=== PATIENT | female | born 1985 | race American Indian/Alaskan Native ===

== ENCOUNTER 2016-11-05 21:13 | Emergency (ER) | payer OTHER ==
[2016-11-05 21:14] VITALS: BMI 29.0
[2016-11-05 21:20] VITALS: BP 147/88; PULSE 81; TEMP 98; O2SAT 96
--- NOTE | 2016-11-05 21:38 | C.PDOC ---
History Of Present Illness 31 y/o female presents to the ED with complaints of generalized abdominal pain for 3 days with associated bloating, belching and urinary frequency. Patient did not take any medications. Denies dysuria, fever, flank pain, nausea, vomiting, constipation, diarrhea, vaginal bleeding or discharge. Time Seen by Provider: 11/05/16 21:29 Chief Complaint (Nursing): Abdominal Pain History Per: Patient History/Exam Limitations: no limitations Onset/Duration Of Symptoms: Days (3) Severity: Mild Location Of Pain/Discomfort: Diffuse, Suprapubic Radiation Of Pain To:: None Quality Of Discomfort: Pressure, "Pain", Gas Associated Symptoms: denies: Fever, Nausea, Vomiting, Back Pain Exacerbating Factors: None Alleviating Factors: None Last Bowel Movement: Today Recent travel outside of the [place]: No Abnormal Vaginal Bleeding: No Last Menstral Period: 10/12/16 Past Medical History Reviewed: Historical Data, Nursing Documentation, Vital Signs Vital Signs: Last Vital Signs Temp 98 F 11/05/16 21:19 Pulse 81 11/05/16 21:19 Resp 18 11/05/16 21:19 BP 147/88 11/05/16 21:19 Pulse Ox 96 11/05/16 21:39 - Medical History PMH: No Chronic Diseases - [facility] Procedures APPLICATION OF SPLINT (05/16/14) D & C POST DELIVERY (04/10/05) INJECT ANTIBIOTIC (07/10/04) INJECT/INFUSE NEC (01/20/15) Family History: States: Unknown Family Hx - Social History Hx Tobacco Use: Yes Hx Alcohol Use: Yes Hx Substance Use: No - Immunization History Hx Tetanus Toxoid Vaccination: No Hx Influenza Vaccination: No Hx Pneumococcal Vaccination: No Review Of Systems Constitutional: Negative for: Fever, Weakness, Malaise ENT: Negative for: Ear Pain, Throat Pain Cardiovascular: Negative for: Chest Pain Respiratory: Negative for: Cough, Shortness of Breath Gastrointestinal: Positive for: Abdominal Pain. Negative for: Nausea, Vomiting , Diarrhea, Constipation, Rectal Pain Genitourinary: Positive for: Frequency. Negative for: Dysuria, Vaginal Discharge, Vaginal Bleeding, Pelvic Pain Skin: Negative for: Rash Neurological: Negative for: Headache, Dizziness Physical Exam - Physical Exam Appears: Well, Non-toxic, No Acute Distress Skin: Warm, Dry, No Rash Head: Atraumatic, Normacephalic Eye(s): bilateral: Normal Inspection Neck: Normal ROM, Supple Chest: Symmetrical Cardiovascular: Rhythm Regular, No Murmur Respiratory: Normal Breath Sounds, No Rales, No Rhonchi, No Wheezing Gastrointestinal/Abdominal: Bowel Sounds, Soft, Tenderness (minimal suprapubic) , No Mass, No Distention, No Guarding, No Rebound Back: No CVA Tenderness Extremity: Normal ROM Extremity: Bilateral: Atraumatic Neurological/Psych: Oriented x3, Normal Speech Gait: Steady ED Course And Treatment O2 Sat by Pulse Oximetry: 96 (on room air) Pulse Ox Interpretation: Normal Medical Decision Making Medical Decision Making: Impression: 31 y.o female with abdominal pain, bloating and gas Plan: Tylenol, UA, test Progress: UA was negative for test and infection. Patient reevaluated is seated comfortably talking on phone in no distress. Explain negative and UA results. She denies any vaginal discharge and does not want pelvic exam, stating she recently had checkup with worm sorter. Advise patient to take any gas relief medication as needed. Return to ER for any worsening symptoms including fever, vomiting or diarrhea. Disposition Counseled Patient/Family Regarding: Diagnosis, Need For Followup - Disposition Referrals: Justin Hayes MD [Staff Provider] - Disposition: HOME/ ROUTINE Disposition Time: 22:01 Condition: STABLE Additional Instructions: Please take any gas relief medication over the counter. Follow up with your primary doctor or hammer fitter for further evaluation Return to the emergency department at any time if symptoms persist or worsen. Instructions: Gas and Bloating (ED) - POA Present On Arrival: None - Clinical Impression Clinical Impression: Dyspepsia - PA / INBOUND SALES CONSULTANT / Resident Statement MD/DO has reviewed & agrees with the documentation as recorded. - Scribe Statement The provider has reviewed the documentation as recorded by the Rajwinder Dye All medical record entries made by the Rajwinder were at my direction and personally dictated by me. I have reviewed the chart and agree that the record accurately reflects my personal performance of the history, physical exam, medical decision making, and the department course for this patient. I have also personally directed, reviewed, and agree with the discharge instructions and disposition.
[2016-11-05 21:45] LABS: RBC URINE 12 /hpf (0-3); URINE BACTERIA RARE (<OCC); URINE BILIRUBIN NEGATIVE (NEGATIVE); URINE COLOR Yellow (YELLOW); URINE GLUCOSE (UA) NORMAL (Normal); URINE KETONE TRACE mg/dL (NEGATIVE); URINE LEUKOCYTE ESTERASE NEG Leu/uL (Negative); URINE PROTEIN NEGATIVE (NEGATIVE); WBC URINE 1 /hpf (0-5)
[2016-11-05 21:46] LABS: URINE BLOOD 2+ (NEGATIVE)
[2016-11-05 22:06] VITALS: RESP 20
== END 2016-11-05 22:06 | disposition home or self-care (01) ==
LOC: C.ER 21:13
DX: R10.13 Epigastric pain (principal)

== ENCOUNTER 2017-08-04 19:17 | Emergency (ER) | payer BC, OTHER ==
[2017-08-04 19:18] VITALS: BMI 29.0
[2017-08-04 22:54] LABS: BASO # 0.1 K/uL (0.0-0.2); BASO % 0.8 % (0.0-2.0); EOS # 0.1 K/uL (0.0-0.7); EOS % 1.3 % (0.0-4.0); HEMOGLOBIN 12.9 g/dL (11.0-16.0); LYMPH # 2.7 K/uL (1.0-4.3); LYMPH % 38.6 % (20.0-40.0); MEAN CELL VOLUME 91.9 fL (81.0-99.0); MEAN CORPUSCULAR HEMOGLOBIN 31.4 pg (27.0-31.0); MEAN CORPUSCULAR HGB CONC 34.2 g/dL (33.0-37.0); MONO # 0.6 K/uL (0.0-0.8); MONO % 8.3 % (0.0-10.0); NEUT # 3.5 K/uL (1.8-7.0); RBC 4.09 Mil/uL (3.80-5.20); RED CELL DISTRIBUTION WIDTH 12.7 % (11.5-14.5); WHITE BLOOD COUNT 6.9 K/uL (4.8-10.8)
[2017-08-04 22:58] LABS: SQUAMOUS EPITHIAL 5 /hpf (0-5); URINE BILIRUBIN NEGATIVE (NEGATIVE); URINE BLOOD NEGATIVE (NEGATIVE); URINE CALCIUM OXALATE CRYSTALS RARE /hpf (<OCC); URINE CLARITY Clear (Clear); URINE COLOR Yellow (YELLOW); URINE GLUCOSE (UA) NORMAL (Normal); URINE LEUKOCYTE ESTERASE NEG Leu/uL (Negative); URINE NITRATE NEGATIVE (NEGATIVE); URINE PROTEIN NEGATIVE (NEGATIVE); URINE UROBILINOGEN NORMAL mg/dL (0.2-1.0)
--- NOTE | 2017-08-04 23:10 | US ---
EXAM: US First Trimester, Transabdominal CLINICAL HISTORY: 31 years old, female; Pain; complicated by abdominal or pelvic pain; Lower; First trimester; Gestational age or lmp: 06-02-2017; ; Prior surgery; Surgery date: 6+ months; Surgery type: 1 TECHNIQUE: Real-time transabdominal obstetrical ultrasound of the maternal pelvis and a first trimester with image documentation. COMPARISON: No relevant prior studies available. FINDINGS: Gestation: Single live intrauterine gestation. heart rate of 164 beats per minute. [place]-rump length of 2.98 cm, correlating with gestational age of 9 weeks 6 days. Uterus/cervix: No subchorionic hemorrhage. No cervical dilatation or effacement. Ovaries: RIGHT ovary: Normal. LEFT ovary: Not visualized. No adnexal masses. Free fluid: No significant free fluid. IMPRESSION: 1. Single live intrauterine gestation.
--- NOTE | 2017-08-04 23:14 | C.PDOC ---
History Of Present Illness 31 year old female who is G 6 P 1 Miscarriage 2 and 2 presents to the ED c/o cold symptoms along with nasal congestion productive cough with brown sputum for the past couple of days. Patient reports feeling febrile but did not take her temperature . Patient also reports 2 days ago she developed lower abdominal discomfort cramping feeling. Patient denies vaginal bleeding, discharge, urinary symptoms. Time Seen by Provider: 08/04/17 22:07 Chief Complaint (Nursing): Cough, Cold, Congestion History Per: Patient History/Exam Limitations: no limitations Onset/Duration Of Symptoms: Days Current Symptoms Are (Timing): Still Present Recent travel outside of the [place]: No Additional History Per: Patient Past Medical History Reviewed: Historical Data, Nursing Documentation, Vital Signs Vital Signs: Last Vital Signs Temp 98.5 F 08/04/17 20:56 Pulse 82 08/04/17 20:56 Resp 20 08/04/17 20:56 BP 144/92 H 08/04/17 20:56 Pulse Ox 99 08/04/17 23:18 - Medical History PMH: No Chronic Diseases Denies: Chronic Kidney Disease Surgical History: No Surg Hx - [facility] Procedures APPLICATION OF SPLINT (05/16/14) D & C POST DELIVERY (04/10/05) INJECT ANTIBIOTIC (07/10/04) INJECT/INFUSE NEC (01/20/15) Family History: States: Unknown Family Hx - Social History Hx Tobacco Use: Yes Hx Alcohol Use: No Hx Substance Use: No - Immunization History Hx Tetanus Toxoid Vaccination: No Hx Influenza Vaccination: Yes Hx Pneumococcal Vaccination: No Review Of Systems Constitutional: Negative for: Fever, Chills ENT: Positive for: Nose Congestion Cardiovascular: Negative for: Chest Pain, Palpitations Respiratory: Positive for: Cough Gastrointestinal: Negative for: Nausea, Vomiting, Abdominal Pain Skin: Negative for: Rash Neurological: Negative for: Weakness, Numbness Physical Exam - Physical Exam Appears: Non-toxic, No Acute Distress, Other (coughing) Skin: Normal Color, Warm, Dry Head: Atraumatic, Normacephalic Nose: No Discharge, No Deformity Oral Mucosa: Moist Throat: Normal, No Erythema, No Exudate Neck: Normal ROM, Supple Chest: Symmetrical Cardiovascular: Rhythm Regular, No Murmur Respiratory: Normal Breath Sounds, No Rales, No Rhonchi, No Wheezing Gastrointestinal/Abdominal: Soft, Tenderness (minimal superpubic ), No Guarding , No Rebound Extremity: Normal ROM, No Pedal Edema, No Calf Tenderness, No Deformity, No Swelling Neurological/Psych: Oriented x3, Normal Speech, Normal Cognition Gait: Steady ED Course And Treatment - Laboratory Results Result Diagrams: 08/04/17 22:47 08/04/17 22:47 Lab Interpretation: Normal O2 Sat by Pulse Oximetry: 99 (On RA) Pulse Ox Interpretation: Normal - CT Scan/US Pelvic ultrasound Other Rad Studies (CT/US): Read By Radiologist, Radiology Report Reviewed CT/US Interpretation: Creator : Gomez Chahal MD. Dictator : Air Intercept Controller : Grapple Crew Leader : Gomez Chahal MD. Approver2 : Report Date : 08/04/2017 23:10 :00. My Comment : . [facility] Division of Radiology. [address] [place] [address]. Tel. no. . . . Patient Name: KUSH RIVERA . Pt. Address: [address] [place] [address] Rec #: [id number]. [place] [address]: Dania Gonzalez MD. Pt Phone: Order Location: [facility] : 1985 Female Age: 31 Order #: [id number]. Reason for exam: Pain. . . . . . Ultrasound. . . 1ST TRIMESTER SINGLE Exam Date: 08/04/17. . This imaging exam was performed at [facility]. EXAM: US First Trimester, Transabdominal. . CLINICAL HISTORY: 31 years old, female; Pain; complicated by abdominal or pelvic. pain; Lower; First trimester; Gestational age or lmp: 11-1-2017; ;. Prior surgery; Surgery date: 6+ months; Surgery type: 1 . . TECHNIQUE: Real-time transabdominal obstetrical ultrasound of the maternal pelvis and a. first trimester with image documentation. . COMPARISON: No relevant prior studies available. . FINDINGS: Gestation: Single live intrauterine gestation. heart rate of 164. beats per minute. [place]-rump length of 2.98 cm, correlating with gestational. age of 9 weeks 6 days. Uterus/cervix: No subchorionic hemorrhage. No cervical dilatation or. effacement. Ovaries: RIGHT ovary: Normal. LEFT ovary: Not visualized. No adnexal. masses. Free fluid: No significant free fluid. . IMPRESSION: 1. Single live intrauterine gestation. . Dictated By: Gomez Chahal MD. Dictated Date/Time: 08/04/172309. Signed By: Gomez Chahal MD. Date Signed: 08/04/172309. Transcribed By: MEDREC. Transcribe Date/Time: 08/04/172309. ACYP02/LUIS M Medical Decision Making Medical Decision Making: Plan: * UA * Blood work * US * Blood work Disposition Counseled Patient/Family Regarding: Studies Performed, Diagnosis, Need For Followup, Rx Given - Disposition Referrals: [facility] [Outside] Disposition: HOME/ ROUTINE Disposition Time: 23:27 Condition: STABLE Prescriptions: Amoxicillin 875 mg PO BID #20 tablet Instructions: Upper Respiratory Infection (ED), (ED) Forms: [facility] ([place]) - Clinical Impression Clinical Impression: Upper respiratory infection, Early stage of - Scribe Statement The provider has reviewed the documentation as recorded by the Scribconner Cobb All medical record entries made by the Scribe were at my direction and personally dictated by me. I have reviewed the chart and agree that the record accurately reflects my personal performance of the history, physical exam, medical decision making, and the department course for this patient. I have also personally directed, reviewed, and agree with the discharge instructions and disposition.
[2017-08-04 23:15] LABS: ALB/GLOB RATIO 1.1 (1.0-2.1); ALBUMIN 3.8 g/dL (3.5-5.0); ALT/SGPT 29 U/L (9-52); AST/SGOT 24 U/L (14-36); BLOOD UREA NITROGEN 10 mg/dL (7-17); CALCIUM 8.6 mg/dl (8.6-10.4); GFR AFRICAN-AMERICAN > 60; GFR NON-AFRICAN AMERICAN > 60
[2017-08-05 00:01] VITALS: BP 138/88; PULSE 81; RESP 18; TEMP 98.2; O2SAT 100
== END 2017-08-04 23:30 | disposition home or self-care (01) ==
LOC: C.ER 19:17
DX: O26.891 Other specified pregnancy related conditions, first trimester (principal); J06.9 Acute upper respiratory infection, unspecified; Z3A.09 9 weeks gestation of pregnancy

== ENCOUNTER 2017-09-23 19:30 | Emergency (ER) | payer BC, OTHER ==
[2017-09-23 19:30] VITALS: BMI 29.0
[2017-09-23 21:10] LABS: SQUAMOUS EPITHIAL 3 /hpf (0-5); URINE BILIRUBIN NEGATIVE (NEGATIVE); URINE BLOOD NEGATIVE (NEGATIVE); URINE CLARITY Hazy (Clear); URINE COLOR Yellow (YELLOW); URINE GLUCOSE (UA) NORMAL (Normal); URINE LEUKOCYTE ESTERASE NEG Leu/uL (Negative); URINE NITRATE NEGATIVE (NEGATIVE); URINE PROTEIN NEGATIVE (NEGATIVE); URINE UROBILINOGEN NORMAL mg/dL (0.2-1.0)
[2017-09-23 21:20] LABS: BASO # 0.1 K/uL (0.0-0.2); BASO % 0.8 % (0.0-2.0); EOS # 0.1 K/uL (0.0-0.7); HEMOGLOBIN 12.6 g/dL (11.0-16.0); LYMPH # 2.3 K/uL (1.0-4.3); LYMPH % 27.3 % (20.0-40.0); MEAN CELL VOLUME 90.6 fL (81.0-99.0); MEAN CORPUSCULAR HGB CONC 34.3 g/dL (33.0-37.0); MEAN PLATELET VOLUME 8.7 fL (7.2-11.7); MONO # 0.5 K/uL (0.0-0.8); MONO % 6.4 % (0.0-10.0); NEUT # 5.4 K/uL (1.8-7.0); NEUT % 64.5 % (50.0-75.0); RBC 4.05 Mil/uL (3.80-5.20); WHITE BLOOD COUNT 8.3 K/uL (4.8-10.8)
[2017-09-23 21:37] LABS: ALB/GLOB RATIO 1.1 (1.0-2.1); ALBUMIN 3.7 g/dL (3.5-5.0); ALT/SGPT 31 U/L (9-52); AST/SGOT 20 U/L (14-36); BLOOD UREA NITROGEN 10 mg/dL (7-17); CALCIUM 9.4 mg/dl (8.6-10.4); GFR AFRICAN-AMERICAN > 60; GFR NON-AFRICAN AMERICAN > 60; LIPASE 55 U/L (23-300)
--- NOTE | 2017-09-23 22:35 | C.PDOC ---
Time Seen by Provider: 09/23/17 20:29 Chief Complaint (Nursing): Abdominal Pain History Per: Patient Onset/Duration Of Symptoms: Days (few) Current Symptoms Are (Timing): Still Present Severity: Moderate Location Of Pain/Discomfort: RLQ, Suprapubic Quality Of Discomfort: Unable To Describe, "Pain" Exacerbating Factors: None Alleviating Factors: None Additional History Per: Prior Records Abnormal Vaginal Bleeding: No Past Medical History Reviewed: Historical Data, Nursing Documentation, Vital Signs Vital Signs: Last Vital Signs Temp 98.2 F 09/23/17 19:46 Pulse 92 H 09/23/17 19:46 Resp 18 09/23/17 19:46 BP 122/85 09/23/17 19:46 Pulse Ox 97 09/23/17 22:56 - Medical History PMH: No Chronic Diseases Other PMH: Pt is 17 weeks - [facility] Procedures APPLICATION OF SPLINT (05/16/14) D & C POST DELIVERY (04/10/05) INJECT ANTIBIOTIC (07/10/04) INJECT/INFUSE NEC (01/20/15) Family History: States: Unknown Family Hx - Social History Hx Tobacco Use: Yes Hx Alcohol Use: No Hx Substance Use: No - Immunization History Hx Tetanus Toxoid Vaccination: No Hx Influenza Vaccination: Yes Hx Pneumococcal Vaccination: No Review Of Systems Except As Marked, All Systems Reviewed And Found Negative. Constitutional: Negative for: Fever Cardiovascular: Negative for: Chest Pain Respiratory: Negative for: Shortness of Breath Gastrointestinal: Positive for: Abdominal Pain. Negative for: Vomiting, Diarrhea Genitourinary: Negative for: Dysuria, Vaginal Discharge, Vaginal Bleeding Musculoskeletal: Negative for: Neck Pain Skin: Negative for: Rash Neurological: Negative for: Weakness, Numbness Physical Exam - Physical Exam Appears: Non-toxic, No Acute Distress Skin: Normal Color, Warm, Dry, No Rash Head: Atraumatic, Normacephalic Eye(s): bilateral: Normal Inspection, PERRL, EOMI Neck: Normal ROM, Supple Cardiovascular: Rhythm Regular Respiratory: Normal Breath Sounds, No Accessory Muscle Use Gastrointestinal/Abdominal: Soft, Tenderness (nonspecific), Other (Gravid) Back: No CVA Tenderness Extremity: Normal ROM Neurological/Psych: Oriented x3, Normal Motor, Normal Sensation ED Course And Treatment - Laboratory Results Result Diagrams: 09/23/17 21:17 09/23/17 21:17 Lab Interpretation: No Acute Changes O2 Sat by Pulse Oximetry: 97 Pulse Ox Interpretation: Normal - CT Scan/US Pelvic US Other Rad Studies (CT/US): Read By Radiologist, Radiology Report Reviewed CT/US Interpretation: IMPRESSION: 17 week 5 day single living breech fetus, estimated date of. delivery 02/26/18 Progress Note: I went to reassess the pt and give her the lab and US results, however I could not find her. I want informed by the staff that the pt had walked out during evaluation. Reevaluation Time: 22:50 Disposition - Disposition Disposition: ELOPEMENT - ER ONLY Disposition Time: 22:57 Condition: UNKNOWN - Clinical Impression Clinical Impression: Abdominal pain during in second trimester, Patient left before treatment completed
--- NOTE | 2017-09-23 22:50 | US ---
EXAM: US After First Trimester, Transabdominal EXAM DATE/TIME: 09/23/2017 8:51 PM CLINICAL HISTORY: 32 years old, female; Pain; complicated by abdominal or pelvic pain; Lower; Second trimester; Gestational age or lmp: 11-1-17; ; Additional info: Abdominal pain TECHNIQUE: Real-time transabdominal obstetrical ultrasound of the maternal pelvis and a second or third trimester with image documentation. COMPARISON: There are no prior studies for comparison. FINDINGS: Fetus: There is a single living intrauterine gestation in breech presentation. There is a heart rate of 152 beats per minute. Placenta: Placenta is posterior. There is no previa. Amniotic fluid: Amniotic fluid volume appears normal. Anatomy: Full anatomic survey was not performed. There is a four-chamber heart. Fluid is seen in the stomach. Kidneys are not well-visualized due to early gestational age. Cord insertion is unremarkable BIOMETRICS Gestational age by US: 17 weeks 5 days EFW: 205 g BPD: 3.84 cm, 17 weeks 5 days HC: 14.48 cm, 17 weeks 5 days AC: 12 cm, 17 weeks 5 days FL: 2.53 cm, 17 weeks 5 days MATERNAL: Ovaries: Ovaries are unremarkable. Cervix: Cervix measures approximately 4 cm Free fluid: There is no free fluid. IMPRESSION: 17 week 5 day single living breech fetus, estimated date of delivery 02/26/18
[2017-09-23 23:03] VITALS: BP 132/78; PULSE 86; RESP 20; TEMP 98; O2SAT 98
== END 2017-09-23 23:02 | disposition left against medical advice (07) ==
LOC: C.ER 19:30
DX: O26.892 Other specified pregnancy related conditions, second trimester (principal); Z3A.17 17 weeks gestation of pregnancy; R10.31 Right lower quadrant pain

== ENCOUNTER 2017-10-24 11:33 | Emergency (ER) | payer OTHER ==
[2017-10-24 12:18] LABS: SQUAMOUS EPITHIAL 7 /hpf (0-5); URINE BILIRUBIN NEGATIVE (NEGATIVE); URINE BLOOD NEGATIVE (NEGATIVE); URINE CLARITY Hazy (Clear); URINE COLOR Yellow (YELLOW); URINE GLUCOSE (UA) NORMAL (Normal); URINE LEUKOCYTE ESTERASE NEG Leu/uL (Negative); URINE PROTEIN NEGATIVE (NEGATIVE)
--- NOTE | 2017-10-24 12:58 | OBHP ---
Datetime: 10/24/2017 12:54 IP Adm Impression: , intrauterine IP Admit Plan: Discharge home Admit Comment, IP Provider: at 22=weeks came with abdomen disomfort started after pateint woke up. pt states at work shw was helping to put a pateint in the wheel chair and some one tapped her bel ly,no vb, lof+fm. pt went home and slept. obhx 2 x sab, 1 x c/s, 4 x sab pmh den med pnv all nkda psh c/s soch de ve closed a/p at 22+weeks maternal discomfort plan dc jome no sex po hy cont pnv bed rest x 2days f/u pmd n wednesday Pelvic Type - PN: Adequate Extremities - PN: Normal Abdomen - PN: Normal Back - PN: Normal Breast - PN: Normal Lungs - PN: Normal Heart - PN: Normal Thyroid - PN: Normal Neurologic - PN: Normal HEENT - PN: Normal General - PN: Normal FHR - Baseline A Provider: 140 Contraction Comments Provider: none Comments, ACOG Physical Exam: gravid,non tender ext no edema,no calf ten EGA AdmitDate IP: 22.1 Vital Signs Provider: Reviewed; Within Normal Limits IP Chief Complaint: Maternal discomfort NICHD Variability Prov Fetus A: Moderate 6-25bpm Dilatation, Provider: 0 Effacement, Provider: 0 Station, Provider: -4 Genitourinary Exam: Normal DTRs - PN: Normal
--- NOTE | 2017-10-24 13:00 | OBDCSUM ---
Datetime: 10/24/2017 12:52 Discharged to, Provider: Home Follow up at, Provider: [facility] Disch Instr Diet: Regular Discharge Time: 10/24/2017 12:52 Follow up in weeks, Provider: wednesday Disch Referrals: None Disch Activity Restrictions: No exercising; No lifting; Minimize walking; No sexual activity; Nothin g in vagina - Gantt, tampons, douche Discharge Comment, Provider: mehnaz jome no sex po hy cont pnv bed rest x 2days f/u pmd n wednesday Discharge Diagnosis Prov Other: 22week abdominal discomfort
[2017-10-24 17:07] VITALS: PULSE 83; RESP 15; O2SAT 98
== END 2017-10-24 13:00 | disposition home or self-care (01) ==
LOC: C.EROB 11:33
DX: O26.892 Other specified pregnancy related conditions, second trimester (principal); Z3A.22 22 weeks gestation of pregnancy

== ENCOUNTER 2018-01-26 06:58 | Emergency (ER) | payer BC, OTHER ==
--- NOTE | 2018-01-26 07:16 | OBHP ---
Datetime: 01/26/2018 07:12 IP Adm Impression: , intrauterine IP Chief Complaint Other: back pain Admit Comment, IP Provider: at 35+weeeks c/ bCK PAIN STRTED YESTERDAY, CONSTANT 01/09. PT TOOK T YLENOL,NO VB, LOF+FM obhx ` x c/s pmh de med pnv ll nkda psh c/s soch de ve closed a/p at 35weeks back pain ua conttoc and efm ivf cont close obser Pelvic Type - PN: Adequate Extremities - PN: Normal Abdomen - PN: Normal Back - PN: Normal Breast - PN: Normal Lungs - PN: Normal Heart - PN: Normal Thyroid - PN: Normal Neurologic - PN: Normal HEENT - PN: Normal General - PN: Normal FHR - Baseline A Provider: 140 Contraction Comments Provider: occ Comments, ACOG Physical Exam: gravid,non tender Vital Signs Provider: Reviewed; Within Normal Limits NICHD Variability Prov Fetus A: Moderate 6-25bpm NICHD Accel Fetus A IP Provider: 15X15 FHR Category Provider Fetus A: Category I Dilatation, Provider: 0 Effacement, Provider: 50 Station, Provider: -3 Genitourinary Exam: Normal DTRs - PN: Normal Datetime: 12/10/2017 10:08 EGA AdmitDate IP: 29.5
[2018-01-26 07:19] VITALS: BMI 29.8
[2018-01-26] MEDS ORDERED: Lactated Ringer's 1,000 ML IV SCH (07:30)
[2018-01-26 07:55] LABS: SQUAMOUS EPITHIAL 49 /hpf (0-5); URINE BACTERIA RARE (<OCC); URINE BILIRUBIN NEGATIVE (NEGATIVE); URINE BLOOD 1+ (NEGATIVE); URINE CALCIUM OXALATE CRYSTALS OCC /hpf (<OCC); URINE CLARITY Hazy (Clear); URINE COLOR Yellow (YELLOW); URINE GLUCOSE (UA) NORMAL (Normal); URINE LEUKOCYTE ESTERASE TRACE Leu/uL (Negative); URINE PROTEIN NEGATIVE (NEGATIVE); URINE UROBILINOGEN NORMAL mg/dL (0.2-1.0)
--- NOTE | 2018-01-26 09:21 | OBDCSUM ---
Datetime: 12/10/2017 12:37 Discharge Comment, Provider: ne home ptl govbrie f/u in dr blankenship on wednesday Discharge Diagnosis Prov Other: 6=36 wee back pain
--- NOTE | 2018-01-26 09:21 | OBHP ---
Datetime: 01/26/2018 09:17 Admit Comment, IP Provider: pt was seen at bed side.feels good ua neg claudine no ctxs plan dc home ptl goven f/u in dr blankenship on wednesday FHR - Baseline A Provider: 130 Contraction Comments Provider: none NICHD Variability Prov Fetus A: Moderate 6-25bpm NICHD Accel Fetus A IP Provider: 15X15 FHR Category Provider Fetus A: Category I
[2018-01-26 14:01] VITALS: BP 131/79; PULSE 86; RESP 18
== END 2018-01-26 09:40 | disposition home or self-care (01) ==
LOC: C.EROB 06:58
DX: O26.93 Pregnancy related conditions, unspecified, third trimester (principal); M54.9 Dorsalgia, unspecified; Z3A.35 35 weeks gestation of pregnancy
CPT/HCPCS: 81001; 99283; J7120